=== PATIENT | male | born 1935 | race Two or more races ===

== ENCOUNTER 2020-03-23 09:06 | Outpatient (CLI) | payer OTHER ==
[2020-03-23] VITALS (7 sets, daily range): BP systolic 117–147; BP diastolic 61–70
[2020-03-23] MEDS ORDERED: BAMLANIVIMAB 700MG/200ML 200 ML IV ONE (10:00)
== END 2020-03-23 12:10 | disposition home or self-care (01) ==
LOC: ER 09:06
PROVIDERS: ATTEND Internal Medicine
DX: Z23 Encounter for immunization (principal); U07.1 COVID-19
CPT/HCPCS: M0239; Q0239